=== PATIENT | female | born 1985 | race Caucasian/White ===

== ENCOUNTER 2018-04-16 09:26 | Emergency (ER) | payer OTHER ==
[2018-04-16] MEDS ORDERED: NS 1,000 ML IV ONE (09:52)
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
[2018-04-16 10:09] LABS: PLATELET COUNT 294 10^3/uL (150-400)
[2018-04-16 12:49] VITALS: BP 98/64
== END 2018-04-16 12:52 | disposition home or self-care (01) ==
DX: R10.30 Lower abdominal pain, unspecified (principal); Z3A.11 11 weeks gestation of pregnancy

== ENCOUNTER 2018-09-23 06:23 | Observation (INO) | payer OTHER | END 2018-09-23 09:50 | disposition home or self-care (01) | LOC: FLD 06:23 ==

== ENCOUNTER 2018-09-23 17:55 | Observation (INO) | payer OTHER | END 2018-09-23 19:50 | disposition home or self-care (01) | LOC: FLD 17:55 ==

== ENCOUNTER 2018-09-24 04:14 | Inpatient (IN) | payer OTHER | END 2018-09-26 12:39 | disposition home or self-care (01) | LOC: FLD 04:14 → FOB 18:22 ==